=== PATIENT | female | born 1990 | race Caucasian/White ===

== ENCOUNTER → 2021-08-14 00:14 | Outpatient (CLI) | payer BC, MEDICAID, SELFPAY ==
[2021-08-14 12:32] LABS: SARS-CoV-2 RNA PCR Negative
== END ==
PROVIDERS: Visit Provider Obstetrics & Gynecology
DX: Z20.822 Contact with and (suspected) exposure to COVID-19 (principal)
CPT/HCPCS: C9803; U0003; U0005

== ENCOUNTER 2021-08-21 08:59 | Outpatient (RCR) | payer BC, MEDICAID, SELFPAY ==
[2021-08-21] MEDS: RHO(D) IMMUNE GLOBULIN 300 MCG/2 ML SYRINGE IM (09:21)
== END 2021-11-18 23:59 | disposition home or self-care (01) ==
LOC: ANHLAB 08:59
PROVIDERS: PCP Nurse Practitioner Family; Visit Provider Obstetrics & Gynecology
DX: Z29.13 Encounter for prophylactic Rho(D) immune globulin (principal); O26.859 Spotting complicating pregnancy, unspecified trimester; Z3A.00 Weeks of gestation of pregnancy not specified
CPT/HCPCS: 36415; 85461; 90384; 96372; J2790

== ENCOUNTER 2021-08-21 10:05 | Emergency (ER) | payer BC, MEDICAID, SELFPAY ==
[2021-08-21 10:16] VITALS: BP 120/80; PULSE 82; RESP 18; TEMP 36.7; O2SAT 100
--- NOTE | 2021-08-21 10:25 | ED.EAR ---
HPI - Ear Problem General Chief complaint: Ear Stated complaint: Sinus, Lt Ear Irritation Time Seen by Provider: 08/21/21 10:20 Source: patient Mode of arrival: ambulatory Limitations: no limitations History of Present Illness HPI Narrative: Koki Mercedes is a 31 yo female with no PMH who comes to [facility] with complaints of sinus congestion that has been unresponsive to saline. She has had tubes inserted under ears last July and she thinks that the tube in the left ear is not draining. She is newly with her third and she was told not to take Flonase by her multimedia project manager she has appoint with her OB on we will revisit this use of drug in the meantime she is been using Benadryl sparingly and saline nasal spray which has not controlled her symptoms she currently has pressure in her left ear and it is quite red Related Data Home Medications Medication Instructions Recorded Confirmed cetirizine [Zyrtec] 10 mg PO DAILY 08/21/21 08/21/21 famotidine [Pepcid] 20 mg PO DAILY 08/21/21 08/21/21 metoclopramide HCl [Reglan] 10 mg PO Q6H PRN 08/21/21 08/21/21 vit no.[id number] 1 tablet PO DAILY 08/21/21 08/21/21 [Classic ] Allergies Allergy/AdvReac Type Severity Reaction Status Date / Time No Known Allergies Allergy Verified 08/21/21 10:09 Review of Systems Review of Systems: CONSTITUTIONAL: Denies fever, chills, sweats. EYES: Denies visual changes, redness, discharge. ENT: Denies rhinorrhea, has congestion, sore throat, left otalgia. CARDIOVASCULAR: Denies chest pain, palpitations, edema. RESPIRATORY: Denies dyspnea, wheezing, cough GASTROINTESTINAL: Denies abdominal pain, nausea, vomiting, diarrhea. GENITOURINARY: Denies dysuria, hematuria, abnormal discharge SKIN: Denies rash or itching. NEUROLOGIC: Denies numbness, or focal weakness. PSYCHIATRIC: Denies anxiety or depression. [facility] Past Medical History Medical History No acute medical problems Social History Social History (Updated 08/21/21 @ 10:27 by Susan Comer CNP) Smoking status: Never smoker Alcohol intake: never Comments At time of signature, I agree with nursing past medical, surgical, social and family history. There is no relevant family history pertinent to the presenting complaint. Exam Narrative: GENERAL: This is a well-nourished, well-developed patient, in mild distress. HEAD: normocephalic, atraumatic. EYES: Sclera clear/white. Vision is grossly intact. EARS: External ears normal, auditory canal on left is erythematous with erythema around tube and without drainage, TMs normal without perforation. Hearing grossly intact. NOSE: External nose normal without nasal discharge, nares without redness, no rhinorrhea. THROAT: Mucous membranes moist, NECK: Neck supple, non-tender CARDIOVASCULAR: Regular rate and rhythm without murmurs, gallops, or rubs. RESPIRATORY: Clear to auscultation. Breath sounds equal bilaterally. No wheezes, rales, or rhonchi. GASTROINTESTINAL: Abdomen soft, SKIN: warm, intact with no suspicious lesions or rash, good texture and turgor. NEURO: awake, alert, and oriented to person, place and time. There were no obvious focal neurologic abnormalities. Steady gait EXTREMITIES: Normal range of motion. BACK: Nontender without deformity Course Course Emergency Course: Left-sided ear pain due to sinus pressure and believe that her left ear tube is not draining Started on polymyxin eardrops discussed revisiting using Flonase with her STEM SIZER Level of Care: Express Care Visit Vital Signs Vital signs: Vital Signs Temperature 98.0 F 08/21/21 10:16 Pulse Rate 82 08/21/21 10:16 Respiratory Rate 18 08/21/21 10:16 Blood Pressure 120/80 08/21/21 10:16 Pulse Oximetry 100 08/21/21 10:16 Temperature 98.0 F 08/21/21 10:16 Pulse Rate 82 08/21/21 10:16 Respiratory Rate 18 08/21/21 10:16 Blood Pressure
== END 2021-08-21 10:33 | disposition home or self-care (01) ==
PROVIDERS: Emergency Provider Nurse Practitioner; PCP Nurse Practitioner Family
DX: O90.89 Other complications of the puerperium, not elsewhere classified (principal); H66.002 Acute suppurative otitis media without spontaneous rupture of ear drum, left ear
CPT/HCPCS: 99213; G0463

== ENCOUNTER 2021-12-25 08:00 | Outpatient (RCR) | payer OTHER, MEDICAID, SELFPAY ==
[2021-12-24 13:37] LABS: Hematocrit 32.1 % (37.0-47.0); Hemoglobin 10.3 g/dL (12.0-15.0); Mean Platelet Volume 11.3 fl (7.4-10.4); Platelet Count Result 172 k/mm3 (150-375)
[2021-12-24 13:48] LABS: Glucose 1 Hour PP 50gm Dose 171 mg/dL
[2021-12-24 14:30] LABS: HIV 1/2 Ab P24 Ag Result Negative (Negative)
[2021-12-25] MEDS: RHO(D) IMMUNE GLOBULIN 300 MCG/2 ML SYRINGE IM (09:42)
== END 2022-03-24 23:59 | disposition home or self-care (01) ==
LOC: ANHLAB 08:00
PROVIDERS: PCP Nurse Practitioner Family; Visit Provider Obstetrics & Gynecology
DX: Z11.4 Encounter for screening for human immunodeficiency virus [HIV] (principal); Z29.13 Encounter for prophylactic Rho(D) immune globulin; O36.0130 Maternal care for anti-D [Rh] antibodies, third trimester, not applicable or unspecified; Z3A.00 Weeks of gestation of pregnancy not specified
CPT/HCPCS: 36415; 82947; 85014; 85018; 85049; 85461; 86703; 90384; 96372; G0432; J2790

== ENCOUNTER 2022-03-09 04:55 | Inpatient (IN) | payer OTHER, BC, MEDICAID, SELFPAY ==
[2022-03-09] VITALS (135 sets, daily range): BP systolic 90–121; BP diastolic 41–92; PULSE 59–110; RESP 15–17; TEMP 36.2–38.1; O2SAT 95–100; BMI 34.8
--- OUTSIDE RECORDS SUMMARY | 2022-03-09 04:59 | XMS_ITS | Encounter Summary ---
:1990 Author Care Team Providers Name Role Phone Thu Lee SQL DATA ANALYST Primary Care Provider [phone] Reason for Visit OB visit OB [id number] EDC 03/16/2022 LMP 06/03/2021 Assessment and Plan Assessment Note Patient is _38__weeks . Discuss ed plan. 1. Routine care Discussion Note: None recorded.Patient educational handouts: No information available. Plan of Care Reminders Provider Appointments None recorded. ? ? Lab None recorded. ? ? Referral None recorded. ? ? Procedures None recorded. ? ? Surgeries None recorded. ? ? Imaging None recorded. ? ? Medications Name Start Date ? ? Adult Aspirin 81 mg tablet ? Claritin 10 mg tablet ? Colace ? Daily ? insulin syringe U-100 with needle 0.3 mL 31 gauge x 15 /64 ? USE AT BEDTIME WITH INSULIN metoclopramide 10 mg tablet ? Novolin N NPH U-100 Insulin isophane 100 unit/mL subcu taneous susp ? INJECT 5 UNITS SUBCUTANEOUSLY AT BEDTIME ondansetron 8 mg disintegrating tablet ? DISSOLVE 1 TABLET IN MOUTH TWICE DAILY OneTouch Delica Plus Lancet 33 gauge ? OneTouch Verio Reflect Meter ? OneTouch Verio test strips ? Pepcid 40 mg tablet ? Medications Administered None recorded. Vitals Height Weight BMI Blood Pressure 5 ft 2.5 in 190 lbs 34.2 kg/m2 117/76 mm[Hg] Results Lab Results None recorded. Allergies Code Code System Name Reaction Severity Onset NKDA ? ? ?
--- OUTSIDE RECORDS SUMMARY | 2022-03-09 04:59 | XMS_ITS | Encounter Summary ---
:1990 Author Care Team Providers Name Role Phone Thu Vancekayode LEON Primary Care Provider [phone] Reason for Visit None recorded. Assessment and Plan 1. Gestational diabetes mellitus, class A>1< ? non-stress test Discussion Note: None recorded.Patient educational handouts: No information available. Plan of Care Reminders Provider Appointments None recorded. ? ? Lab None recorded. ? ? Referral None recorded. ? ? Procedures None recorded. ? ? Surgeries None recorded. ? ? Imaging Non-stress Test 03/04/2022 [place] Medications Name Start Date ? ? Adult [...] tablet ? Medications Administered None recorded. Vitals None recorded. Results Lab Results None recorded. Allergies Code Code System Name Reaction Severity Onset NKDA ? ? ? Problems Name Status Onset Date Source ? Active 08/26/2021 ? Procedures Date Name Performed by ? 07/10/2021
--- OUTSIDE RECORDS SUMMARY | 2022-03-09 04:59 | XMS_ITS ---
:1990 Author Care Team Providers Name Role Phone ANDREW MANSFIELD CAROLYN Primary Care Provider [phone] Allergies Code Code System Name Reaction Severity Status Onset NKDA ? Medications Name Status Start Date Stop Date ? ? Adult Aspirin 81 mg tablet Active ? Not a vailable amoxicillin 500 mg capsule Completed ? 02/02 amoxicillin 875 mg tablet Completed ? 2021 TAKE 1 TABLET BY MOUTH TWICE DAILY FOR 7 DAYS amoxicillin 875 mg-potassium clavulanate 125 mg tablet Completed ? 09/24/2021 TAKE 1 TABLET BY MOUTH TWICE DAILY FOR 10 DAYS Ceftin 500 mg tablet Completed 10/15/2013 11/08/2013 take 1 tablet (500MG) by oral route every 12 hours cephalexin 500 mg capsule Completed ? 2021 TAKE 1 CAPSULE BY MOUTH TWICE DAILY FOR 10 DAYS Cipro 500 mg tablet Completed 05/27/2015 07/29/2016 take 1 tablet by oral route every 12 hours ciprofloxacin 0.3 %-dexamethasone 0.1 % ear Completed ? 03/04/2021 drops,suspension Claritin 10 mg tablet Active ? Not availa ble Colace Active ? Not available cyclobenzaprine 10 mg tablet Completed 03/08/2017 take 1 tablet by oral route 2 times every day Daily Active ? Not available diazepam 5 mg tablet Completed ? 03/08/2021 dicloxacillin 500 mg capsule Completed 06/21/2017 take 1 capsule by oral route every 6 ho urs 1 hour before a meal or 2 hours after a meal Fioricet 50 mg-325 mg-40 mg tablet Completed 10/03/2013 10/15/2013 take 1 - 2 tablet by oral route every 4 hours as needed not to exceed 6 tablets per 24hrs Flagyl 500 mg ta
--- OUTSIDE RECORDS SUMMARY | 2022-03-09 04:59 | XMS_ITS | Encounter Summary ---
:1990 Author Care Team Providers Name Role Phone Thu Vancekayode LEON Primary Care Provider [phone] Reason for Visit None recorded. Assessment and Plan 1. Gestational diabetes mellitus, class A>2< ? non-stress test Discussion Note: None recorded.Patient educational handouts: No information available. Plan of Care Reminders Provider Appointments None recorded. ? ? Lab None recorded. ? ? Referral None recorded. ? ? Procedures None recorded. ? ? Surgeries None recorded. ? ? Imaging Non-stress Test 03/08/2022 [place] Medications Name Start Date ? ? Adult [...]
--- OUTSIDE RECORDS SUMMARY | 2022-03-09 05:00 | XMS_ITS | Encounter Summary ---
:1990 Author Care Team Providers Name Role Phone Thu Vancekayode LEON Primary Care Provider [phone] Reason for Visit None recorded. Assessment and Plan 1. Gestational diabetes mellitus, class A>1< ? non-stress test Discussion Note: None recorded.Patient educational handouts: No information available. Plan of Care Reminders Provider Appointments None recorded. ? ? Lab None recorded. ? ? Referral None recorded. ? ? Procedures None recorded. ? ? Surgeries None recorded. ? ? Imaging Non-stress Test 03/01/2022 [place] Medications Name Start Date ? ? Adult [...]
--- OUTSIDE RECORDS SUMMARY | 2022-03-09 05:00 | XMS_ITS | Encounter Summary ---
:1990 Author Care Team Providers Name Role Phone Thu Lee CAROLYN Primary Care Provider [phone] Reason for Visit None recorded. Assessment and Plan 1. Gestational diabetes mellitus, class A>1< ? US, obstetric, follow-up Discussion Note: None recorded.Patient educational handouts: No information available. Plan of Care Reminders Provider Appointments None recorded. ? ? Lab None recorded. ? ? Referral None recorded. ? ? Procedures None recorded. ? ? Surgeries None recorded. ? ? Imaging US, Obstetric, Follow-up 02/18/2022 [facility] Medications Name Start Date ? ? Adult Aspirin 81 mg tablet ? Claritin 10 mg tablet ? Colace ? Daily ? insulin syringe U-100 with needle 0.3 mL 31 gauge x 15 ? USE AT BEDTIME WITH INSULIN metoclopramide [...]
--- OUTSIDE RECORDS SUMMARY | 2022-03-09 05:00 | XMS_ITS | Encounter Summary ---
:1990 Author Care Team Providers Name Role Phone Thu Vancekayode LEON Primary Care Provider [phone] Reason for Visit None recorded. Assessment and Plan 1. Gestational diabetes mellitus, class A>1< ? non-stress test Discussion Note: None recorded.Patient educational handouts: No information available. Plan of Care Reminders Provider Appointments None recorded. ? ? Lab None recorded. ? ? Referral None recorded. ? ? Procedures None recorded. ? ? Surgeries None recorded. ? ? Imaging Non-stress Test 02/15/2022 [place] Medications Name Start Date ? ? Adult [...]
--- OUTSIDE RECORDS SUMMARY | 2022-03-09 05:00 | XMS_ITS | Encounter Summary ---
:1990 Author Care Team Providers Name Role Phone Thu Lee MORTGAGE FUNDER Primary Care Provider [phone] Reason for Visit OB visit OB [id number] EDC 03/16/2022 LMP 06/03/2021 Assessment and Plan Assessment Note Patient is _35__weeks . Discuss ed plan. 1. Routine care [...] BMI Blood Pressure 5 ft 2.5 in 191 lbs 34.4 kg/m2 111/71 mm[Hg] Results Lab Results None recorded. Allergies Code Code System Name Reaction Severity Onset NKDA ? ? ?
--- OUTSIDE RECORDS SUMMARY | 2022-03-09 05:00 | XMS_ITS | Encounter Summary ---
:1990 Author Care Team Providers Name Role Phone Thu Lee SLATE SPLITTING SUPERVISOR Primary Care Provider [phone] Reason for Visit OB visit OB [id number] EDC 03/16/2022 LMP Assessment and Plan Assessment Note Patient is __36_weeks . Discuss ed plan. 1. Routine care [...] ft 2.5 in 190 lbs 34.2 kg/m2 109/74 mm[Hg] Results Lab Results None recorded. Allergies Code Code System Name Reaction Severity Onset NKDA ? ? ? Problems
--- OUTSIDE RECORDS SUMMARY | 2022-03-09 05:00 | XMS_ITS | Encounter Summary ---
:1990 Author Care Team Providers Name Role Phone Thu Vancekayode LEON Primary Care Provider [phone] Reason for Visit None recorded. Assessment and Plan 1. heart deceleration ? US, obstetric, biophysical profile Discussion Note: None recorded.Patient educational handouts: No information available. Plan of Care Reminders Provider Appointments None recorded. ? ? Lab None recorded. ? ? Referral None recorded. ? ? Procedures None recorded. ? ? Surgeries None recorded. ? ? Imaging US, Obstetric, Biophysical Profile 02/08/2022 [place] Medications Name Start Date ? ? Adult [...]
--- OUTSIDE RECORDS SUMMARY | 2022-03-09 05:00 | XMS_ITS | Encounter Summary ---
:1990 Author Care Team Providers Name Role Phone Thu Lee PROCESSOR GRAIN Primary Care Provider [phone] Reason for Visit OB visit OB [id number] EDC 03/16/22 LMP 06/03/2021 Assessment and Plan Assessment Note Patient is _37__weeks . Discuss ed plan. 1. Routine care [...] BMI Blood Pressure 5 ft 2.5 in 192 lbs 34.6 kg/m2 116/77 mm[Hg] Results Lab Results None recorded. Allergies Code Code System Name Reaction Severity Onset NKDA ? ? ? Pr
--- OUTSIDE RECORDS SUMMARY | 2022-03-09 05:00 | XMS_ITS | Encounter Summary ---
:1990 Author Care Team Providers Name Role Phone Thu Vancekayode LEON Primary Care Provider [phone] Reason for Visit None recorded. Assessment and Plan 1. Reduced movement ? non-stress test Discussion Note: None recorded.Patient educational handouts: No information available. Plan of Care Reminders Provider Appointments None recorded. ? ? Lab None recorded. ? ? Referral None recorded. ? ? Procedures None recorded. ? ? Surgeries None recorded. ? ? Imaging Non-stress Test 02/09/2022 [place] Medications Name Start Date ? ? Adult [...] Procedures Date Name Performed by ? 07/10/2021 Perinasal Sinus
--- OUTSIDE RECORDS SUMMARY | 2022-03-09 05:00 | XMS_ITS | Encounter Summary ---
:1990 Author Care Team Providers Name Role Phone Thu Vancekayode LEON Primary Care Provider [phone] Reason for Visit None recorded. Assessment and Plan 1. Gestational diabetes mellitus, class A>1< ? non-stress test Discussion Note: None recorded.Patient educational handouts: No information available. Plan of Care Reminders Provider Appointments None recorded. ? ? Lab None recorded. ? ? Referral None recorded. ? ? Procedures None recorded. ? ? Surgeries None recorded. ? ? Imaging Non-stress Test 02/18/2022 [place] Medications Name Start Date ? ? Adult [...]
--- OUTSIDE RECORDS SUMMARY | 2022-03-09 05:00 | XMS_ITS | Encounter Summary ---
:1990 Author Care Team Providers Name Role Phone Thu Vancekayode LEON Primary Care Provider [phone] Reason for Visit None recorded. Assessment and Plan 1. Gestational diabetes mellitus, class A>1< ? non-stress test Discussion Note: None recorded.Patient educational handouts: No information available. Plan of Care Reminders Provider Appointments None recorded. ? ? Lab None recorded. ? ? Referral None recorded. ? ? Procedures None recorded. ? ? Surgeries None recorded. ? ? Imaging Non-stress Test 02/11/2022 [place] Medications Name Start Date ? ? Adult [...]
--- OUTSIDE RECORDS SUMMARY | 2022-03-09 05:00 | XMS_ITS | Encounter Summary ---
:1990 Author Care Team Providers Name Role Phone Thu Vancekayode LEON Primary Care Provider [phone] Reason for Visit None recorded. Assessment and Plan 1. condition affecting obstetrica l care of mother ? US, obstetric, biophysical profile + non-stress test Discussion Note: None recorded.Patient educational handouts: No information available. Plan of Care Reminders Provider Appointments None recorded. ? ? Lab None recorded. ? ? Referral None recorded. ? ? Procedures None recorded. ? ? Surgeries None recorded. ? ? Imaging US, Obstetric, Biophysical Profile + 2 [place] Non-stress Test Medications Name Start Date ? ? Adult [...]
--- OUTSIDE RECORDS SUMMARY | 2022-03-09 05:00 | XMS_ITS | Encounter Summary ---
:1990 Author Care Team Providers Name Role Phone Thu Vancekayode LEON Primary Care Provider [phone] Reason for Visit None recorded. Assessment and Plan 1. Gestational diabetes mellitus, class A>1< ? non-stress test Discussion Note: None recorded.Patient educational handouts: No information available. Plan of Care Reminders Provider Appointments None recorded. ? ? Lab None recorded. ? ? Referral None recorded. ? ? Procedures None recorded. ? ? Surgeries None recorded. ? ? Imaging Non-stress Test 02/22/2022 [place] Medications Name Start Date ? ? Adult [...]
--- OUTSIDE RECORDS SUMMARY | 2022-03-09 05:00 | XMS_ITS | Encounter Summary ---
:1990 Author Care Team Providers Name Role Phone Thu Vancekayode LEON Primary Care Provider [phone] Reason for Visit None recorded. Assessment and Plan 1. Gestational diabetes mellitus, class A>1< ? non-stress test Discussion Note: None recorded.Patient educational handouts: No information available. Plan of Care Reminders Provider Appointments None recorded. ? ? Lab None recorded. ? ? Referral None recorded. ? ? Procedures None recorded. ? ? Surgeries None recorded. ? ? Imaging Non-stress Test 02/25/2022 [place] Medications Name Start Date ? ? Adult [...]
--- OUTSIDE RECORDS SUMMARY | 2022-03-09 05:01 | XMS_ITS | Encounter Summary ---
:1990 Author Care Team Providers Name Role Phone Thu Lee CAROLYN Primary Care Provider [phone] Reason for Visit OB visit Assessment and Plan 1. Routine care Discussion Note: None recorded.Patient [...] BMI Blood Pressure 5 ft 2.5 in 189 lbs 34 kg/m2 125/76 mm[Hg] Results Lab Results None recorded. Allergies Code Code System Name Reaction Severity Onset NKDA ? ? ? Problems Name Status Onset Date Source ? Active 08/26/2021 ? Procedures Date Name Perf
--- OUTSIDE RECORDS SUMMARY | 2022-03-09 05:01 | XMS_ITS | Encounter Summary ---
:1990 Author Care Team Providers Name Role Phone Thu Vancekayode LEON Primary Care Provider [phone] Reason for Visit None recorded. Assessment and Plan 1. Gestational diabetes mellitus, class A>2< ? non-stress test Discussion Note: None recorded.Patient educational handouts: No information available. Plan of Care Reminders Provider Appointments None recorded. ? ? Lab None recorded. ? ? Referral None recorded. ? ? Procedures None recorded. ? ? Surgeries None recorded. ? ? Imaging Non-stress Test 01/28/2022 [place] Medications Name Start Date ? ? Adult [...]
--- OUTSIDE RECORDS SUMMARY | 2022-03-09 05:01 | XMS_ITS | Encounter Summary ---
:1990 Author Care Team Providers Name Role Phone Thu Lee SHALE PLANER OPERATOR Primary Care Provider [phone] Reason for Visit OB visit OB [id number] EDC 03/16/2022 LMP 06/03/2021 Assessment and Plan Assessment Note Patient is __34_weeks . Discuss ed plan. 1. Routine care [...] ft 2.5 in 191 lbs 34.4 kg/m2 110/72 mm[Hg] Results Lab Results None recorded. Allergies Code Code System Name Reaction Severity Onset NKDA ? ? ? P
--- OUTSIDE RECORDS SUMMARY | 2022-03-09 05:01 | XMS_ITS | Encounter Summary ---
:1990 Author Care Team Providers Name Role Phone Thu Lee CAROLYN Primary Care Provider [phone] Reason for Visit None recorded. Assessment and Plan 1. Gestational diabetes mellitus, class A>1< ? US, obstetric, follow-up Discussion Note: None recorded.Patient educational handouts: No information available. Plan of Care Reminders Provider Appointments None recorded. ? ? Lab None recorded. ? ? Referral None recorded. ? ? Procedures None recorded. ? ? Surgeries None recorded. ? ? Imaging US, Obstetric, Follow-up 01/28/2022 [facility] Medications Name Start Date ? [...]
--- OUTSIDE RECORDS SUMMARY | 2022-03-09 05:01 | XMS_ITS | Encounter Summary ---
:1990 Author Care Team Providers Name Role Phone Thu Lee CAROLYN Primary Care Provider [phone] Reason for Visit OB visit Assessment and Plan Assessment Note Patient is ___weeks . Discussed plan. 1. Routine care Discussion Note: None [...] ft 2.5 in 191 lbs 34.4 kg/m2 111/75 mm[Hg] Results Lab Results None recorded. Allergies Code Code System Name Reaction Severity Onset NKDA ? ? ? Problems Name Status Onset Date Source
--- OUTSIDE RECORDS SUMMARY | 2022-03-09 05:01 | XMS_ITS | Encounter Summary ---
:1990 Author Care Team Providers Name Role Phone Thu Smallsgwen LEON Primary Care Provider [phone] Reason for Visit None recorded. Assessment and Plan 1. screening ? US, obstetric, follow-up Discussion Note: None recorded.Patient educational handouts: No information available. Plan of Care Reminders Provider Appointments None recorded. ? ? Lab None recorded. ? ? Referral None recorded. ? ? Procedures None recorded. ? ? Surgeries None recorded. ? ? Imaging US, Obstetric, Follow-up 12/08/2021 [facility] Medications Name Start Date ? [...]
--- OUTSIDE RECORDS SUMMARY | 2022-03-09 05:01 | XMS_ITS | Encounter Summary ---
:1990 Author Care Team Providers Name Role Phone Thu Vancekayode LEON Primary Care Provider [phone] Reason for Visit None recorded. Assessment and Plan 1. Gestational diabetes mellitus, class A>2< ? non-stress test Discussion Note: None recorded.Patient educational handouts: No information available. Plan of Care Reminders Provider Appointments None recorded. ? ? Lab None recorded. ? ? Referral None recorded. ? ? Procedures None recorded. ? ? Surgeries None recorded. ? ? Imaging Non-stress Test 02/04/2022 [place] Medications Name Start Date ? ? Adult [...]
--- OUTSIDE RECORDS SUMMARY | 2022-03-09 05:01 | XMS_ITS | Encounter Summary ---
:1990 Author Care Team Providers Name Role Phone Thu Lee CAROLYN Primary Care Provider [phone] Reason for Visit OB visit Assessment and [...] ft 2.5 in 189 lbs 34 kg/m2 113/75 mm[Hg] Results Lab Results None recorded. Allergies Code Code System Name Reaction Severity Onset NKDA ? ? ? Problems Name Status Onset Date Source
--- OUTSIDE RECORDS SUMMARY | 2022-03-09 05:01 | XMS_ITS | Encounter Summary ---
:1990 Author Care Team Providers Name Role Phone Thu Smallsgwen LEON Primary Care Provider [phone] Reason for Visit OB visit Assessment and [...] ft 2.5 in 189 lbs 34 kg/m2 112/75 mm[Hg] Results Lab Results None recorded. Allergies Code Code System Name Reaction Severity Onset NKDA ? ? ? Problems Name Status Onset Date Source
--- OUTSIDE RECORDS SUMMARY | 2022-03-09 05:01 | XMS_ITS | Encounter Summary ---
:1990 Author Care Team Providers Name Role Phone Thu Lee CAROLYN Primary Care Provider [phone] Reason for Visit NST [id number] EDC 03/16/2022 LMP 06/03/2021 Assessment and Plan 1. Gestational diabetes mellitus, class A>1< ? non-stress test Discussion Note: None recorded.Patient educational handouts: No information available. Plan of Care Reminders Provider Appointments None recorded. ? ? Lab None recorded. ? ? Referral None recorded. ? ? Procedures None recorded. ? ? Surgeries None recorded. ? ? Imaging Non-stress Test 01/25/2022 [place] Medications Name Start Date ? ? Adult [...]
--- OUTSIDE RECORDS SUMMARY | 2022-03-09 05:01 | XMS_ITS | Encounter Summary ---
:1990 Author Care Team Providers Name Role Phone Thu Vancekayode LEON Primary Care Provider [phone] Reason for Visit None recorded. Assessment and Plan 1. Gestational diabetes mellitus, class A>2< ? non-stress test Discussion Note: None recorded.Patient educational handouts: No information available. Plan of Care Reminders Provider Appointments None recorded. ? ? Lab None recorded. ? ? Referral None recorded. ? ? Procedures None recorded. ? ? Surgeries None recorded. ? ? Imaging Non-stress Test 02/08/2022 [place] Medications Name Start Date ? ? Adult [...]
--- OUTSIDE RECORDS SUMMARY | 2022-03-09 05:01 | XMS_ITS | Encounter Summary ---
:1990 Author Care Team Providers Name Role Phone Tuh Lee APPAREL MANUFACTURE INSTRUCTOR Primary Care Provider [phone] Reason for Visit OB visit OB [id number] EDC 03/16/2022 LMP 06/03/2021 Assessment and Plan Assessment Note Patient is _33__weeks . Discuss ed plan. 1. Routine care [...] ft 2.5 in 190 lbs 34.2 kg/m2 114/75 mm[Hg] Results Lab Results None recorded. Allergies Code Code System Name Reaction Severity Onset NKDA ? ? ? P
--- OUTSIDE RECORDS SUMMARY | 2022-03-09 05:01 | XMS_ITS | Encounter Summary ---
:1990 Author Care Team Providers Name Role Phone Thu Vancekayode LEON Primary Care Provider [phone] Reason for Visit None recorded. Assessment and Plan 1. Gestational diabetes mellitus, class A>1< ? non-stress test Discussion Note: None recorded.Patient educational handouts: No information available. Plan of Care Reminders Provider Appointments None recorded. ? ? Lab None recorded. ? ? Referral None recorded. ? ? Procedures None recorded. ? ? Surgeries None recorded. ? ? Imaging Non-stress Test 01/20/2022 [place] Medications Name Start Date ? ? [...]
--- OUTSIDE RECORDS SUMMARY | 2022-03-09 05:01 | XMS_ITS | Encounter Summary ---
:1990 Author Care Team Providers Name Role Phone Thu Lee CAROLYN Primary Care Provider [phone] Reason for Visit nst [id number] EDC 03/16/2022 Assessment and Plan 1. Gestational diabetes mellitus ? non-stress test Discussion Note: None recorded.Patient educational handouts: No information available. Plan of Care Reminders Provider Appointments None recorded. ? ? Lab None recorded. ? ? Referral None recorded. ? ? Procedures None recorded. ? ? Surgeries None recorded. ? ? Imaging Non-stress Test 02/01/2022 [place] Medications Name Start Date ? ? Adult [...] ft 2.5 in 190 lbs 34.2 kg/m2 107/73 mm[Hg] Results Lab Results None recorded. Allergies Code Code System Name Reaction Severity Onset NKDA ? ? ? Problems Name Status Onset Date Source ? Active 08/26/2021
--- NOTE | 2022-03-09 05:52 | LDADM ---
This patient, Prerna Mercedes, was admitted to Labor/Delivery/Recovery 102 on 03/09/22 at 04:55. Plans for labor, pain management and were discussed with patient. Patient/family oriented to hospital policies and general routines including ID bracelet, bed and alarms, visiting hours, pain management, procedures, bathroom and other care routines, personal items, smoking policy, room service/diet and guest tray routines, security routines, and visiting hours. Patient/Family are encouraged to report perceived risks to care and to ask questions if they do not understand what they are told or what they should do. See OBIX for further documentation.
[2022-03-09 06:33] LABS: Glucose Point of Care 112 mg/dl (65-105)
[2022-03-09 06:40] LABS: Basophils Percent Auto 0.5 % (0.2-1.2); Eosinophils Absolute Auto 0.1 K/mm3 (0-0.3); Eosinophils Percent Auto 0.6 % (0-4.4); Hematocrit 38.2 % (37.0-47.0); Hemoglobin 12.2 g/dL (12.0-15.0); Immature Granulocyte Absolute 0.21 K/mm3 (0.00-0.031); Immature Granulocyte Percent A 2.6 % (0-0.5); Lymphocytes Absolute Auto 1.71 K/mm3 (0.9-3.2); Lymphocytes Percent Auto 21.1 % (18.3-44.2); Mean Corpuscular HGB Conc 31.9 g/dl (32-36); Mean Corpuscular Hemoglobin 28.2 pg (26-34); Mean Corpuscular Volume 88.4 fl (80-100); Mean Platelet Volume 12.6 fl (7.4-10.4); Monocytes Absolute Auto 0.5 K/mm3 (0.1-0.6); Monocytes Percent Auto 6.7 % (2.6-8.5); Neutrophils Absolute Auto 5.5 K/mm3 (1.3-6.7); Neutrophils Percent Auto 68.5 % (45.5-73.1); Nucleated Red Blood Cells Perc 0.2 % (0.0-0.2); Platelet Count Result 132 k/mm3 (150-375); Red Blood Count 4.32 M/mm3 (4.2-5.4); Red Cell Distribution Width 18.5 % (11.5-14.5); White Blood Count 8.1 K/mm3 (4.5-10.0)
[2022-03-09] MEDS: LACTATED RINGERS 1,000 ML 125 ML IV CONT ×4 (06:40→18:17)
[2022-03-09] MEDS: AMPICILLIN 2 GM/NS 100 ML 2 GM/100 ML BAG IVPB (06:41)
[2022-03-09] MEDS: OXYTOCIN 30 UNITS/NS 500 ML 30 UNITS/500 ML BAG IV CONT (06:42)
--- NOTE | 2022-03-09 07:41 | WPDOBADMIT ---
Obstetrics - Admit Note Admission Note: record reviewed. No pertinent additions to the history and/or any subsequent changes in the physical findings that are not consistent with the expected course of the were found. IOL, GDMA2. TOLAC, SVE 260/-2, AROM small amount of clear odorless fluid, IUPC placed and consent signed by Dr. Berg and pt, anticipate vaginal delivery Additions to the history and/or subsequent changes in the physical findings follow. None.
[2022-03-09 07:56] LABS: Rapid Plasma Reagin Non-Reactive (NonReactive)
[2022-03-09] MEDS: AMPICILLIN 1 GM/NS 50 ML 1 GM/50 ML BAG IVPB ×3 (10:40→18:16)
[2022-03-09 11:39] LABS: Glucose Point of Care 99 mg/dl (65-105)
--- NOTE | 2022-03-09 12:13 | WPDANESEPP ---
Anes - Eval Pre Procedure Procedure: labor pain management Date/Time: 03/09/22 12:13 Surgeon: Otis Preop Diagnosis: pain during labor Pre Op Diagnosis: Pain during labor Patient Data Age: 31 Gender: F Height: 1.57 m Weight: 86.4 kg Last Vital Signs Temp 97.8 F 03/09/22 11:00 Pulse 86 03/09/22 11:31 BP 98/85 L 03/09/22 11:31 O2 Del Method Room Air 03/09/22 05:49 Allergies Allergy/AdvReac Type Severity Reaction Status Date / Time No Known Allergies Allergy Verified 03/09/22 06:37 Home Medications Medication Instructions Recorded Confirmed Type cetirizine 10 mg capsule (Zyrtec) 10 mg PO DAILY 08/21/21 03/09/22 History famotidine 20 mg tablet (Pepcid) 20 mg PO DAILY 08/21/21 03/09/22 History vits no.126-ferrous fum 1 tablet PO DAILY 08/21/21 03/09/22 History 28 mg iron-folic acid 800 mcg tablet (Classic ) insulin zinc human recomb 100 10 unit subcut 02/26/22 History unit/mL subcutaneous suspension Laboratory Tests 03/09/22 03/09/22 03/09/22 05:22 05:22 05:22 WBC 8.1 K/mm3 K/mm3 (4.5-10.0) RBC 4.32 M/mm3 M/mm3 (4.2-5.4) Hgb 12.2 g/dL g/dL (12.0-15.0) Hct 38.2 % % (37.0-47.0) MCV 88.4 fl fl (80-100) MCH 28.2 pg pg (26-34) MCHC 31.9 g/dl L g/dl (32-36) RDW 18.5 % H % (11.5-14.5) Plt Count 132 k/mm3 L k/mm3 (150-375) MPV 12.6 fl H fl (7.4-10.4) Immature Gran % (Auto) 2.6 % H % (0-0.5) Neut % (Auto) 68.5 % % (45.5-73.1) Lymph % (Auto) 21.1 % % (18.3-44.2) Robertson % (Auto) 6.7 % % (2.6-8.5) Eos % (Auto) 0.6 % % (0-4.4) Baso % (Auto) 0.5 % % (0.2-1.2) Lymph # (Auto) 1.71 K/mm3 K/mm3 (0.9-3.2) Robertson # (Auto) 0.5 K/mm3 K/mm3 (0.1-0.6) Eos # (Auto) 0.1 K/mm3 K/mm3 (0-0.3) Baso # (Auto) 0.0 K/mm3 K/mm3 (0.0-0.1) Abs Immat Gran (auto) 0.21 K/mm3 H K/mm3 (0.00-0.031) Absolute Neuts (auto) 5.5 K/mm3 K/mm3 (1.3-6.7) Absolute Nucleated RBC 0.0 K/mm3 K/mm3 (0.0-0.012) Nucleated RBC % 0.2 % % (0.0-0.2) % Immature Plt Fraction 15.0 % H % (0.9-11.2) POC Capillary Glucose RPR Non-reactive (NonReactive) Blood Type O Negative Antibody Screen Negative 03/09/22 03/09/22 06:27 11:37 WBC RBC Hgb Hct MCV MCH MCHC RDW Plt Count MPV Immature Gran % (Auto) Neut % (Auto) Lymph % (Auto) Robertson % (Auto) Eos % (Auto) Baso % (Auto) Lymph # (Auto) Robertson # (Auto) Eos # (Auto) Baso # (Auto) Abs Immat Gran (auto) Absolute Neuts (auto) Absolute Nucleated RBC Nucleated RBC % % Immature Plt Fraction POC Capillary Glucose 112 mg/dl H mg/dl 99 mg/dl mg/dl (65-105) (65-105) RPR Blood Type Antibody Screen Patient hx anesthesia problems: none Family hx anesthesia problems: none Results Review: All pre-operative results and documents have been reviewed as part of the pre-operative evaluation. [facility] Past Medical History Medical History No acute medical problems Family History Family History Grandparent Asthma Sibling Asthma Social History Social History Smoking status: Never smoker Alcohol intake: never Substance use: never Spiritual care concerns: No Exam Day of Procedure 03/09/22 12:13 Patient weight: obese Neurological: alert and oriented
[2022-03-09 14:41] LABS: Glucose Point of Care 82 mg/dl (65-105)
[2022-03-09] MEDS: ONDANSETRON INJ 4 MG/2 ML VIAL IV PUSH ×2 (17:17→21:18)
[2022-03-09 21:37] LABS: Glucose Point of Care 80 mg/dl (65-105)
--- NOTE | 2022-03-09 22:03 | PM.IMHP ---
H&P: HPI History of Present Illness Date/Time: 03/09/22 22:03 Chief Complaint: Labor Narrative: This patient is a 31-year-old multiparous female term who was attempting a trial of labor after . She reached the 2nd stage and then there was failure to descent of the fetus in the 2nd stage. She denies any nausea, vomiting, fever, chills. She denies any chest pain or shortness of breath. There was no excessive vaginal bleeding. Review of Systems Review of Systems: All systems reviewed & are unremarkable except as noted in HPI and below Constitutional: Constitutional: Denies chills, Denies fatigue, Denies fever(s) and Denies weakness Eyes: Eyes: Denies blurry vision, Denies change in vision, Denies loss of peripheral vision, Denies loss of vision, Denies other visual disturbances and Denies eye pain ENT: Denies vertigo, Denies dizziness, Denies hearing loss, Denies mouth pain, Denies nasal obstruction, Denies neck mass and Denies neck pain Cardiovascular: Cardiovascular: Denies chest pain, Denies diaphoresis, Denies syncope, Denies leg edema and Denies dyspnea Respiratory: Respiratory: Denies chest congestion, Denies cough, Denies hemoptysis, Denies dyspnea and Denies wheezing Gastrointestinal: Gastrointestinal: Denies abdominal pain, Denies constipation, Denies diarrhea, Denies nausea and Denies vomiting Genitourinary: Genitourinary: Denies hematuria, Denies change in libido, Denies nocturia, Denies genital lesions, Denies flank pain and Denies urinary urgency Musculoskeletal: Musculoskeletal: Denies abnormal gait, Denies back pain, Denies myalgias, Denies arthralgias, Denies joint swelling, Denies muscle weakness and Denies neck pain Integumentary/Breasts: Skin/Breast: Denies swelling, Denies breast pain, Denies breast mass, Denies dry skin, Denies nipple discharge, Denies unusual bruising and Denies jaundice Neurologic: Denies Neuro-related abnormal movements, Denies Abnormal speech present, Denies abnormal gait, Denies behavioral changes, Denies confusion, Denies vertigo, Denies dizziness, Denies syncope, Denies loss of vision, Denies memory loss, Denies convulsions and Denies weakness Psychiatric: Psychiatric: Denies abnormal sleep pattern, Denies behavioral changes, Denies change in libido, Denies confusion, Denies depression, Denies anhedonia and Denies memory loss Endocrine: Endocrine: Reports no additional endocrine complaints, Denies change in libido and Denies fatigue Hematologic/Lymphatic: Hematologic/Lymphatic: Reports no additional hematologic/lymphatic complaints Allergic/Immunologic: Allergic/Immunologic: Reports no additional allergic/immunologic complaints and Denies wheezing PMFSH Past Medical History Medical History No acute medical problems Family History Family History Grandparent Asthma Sibling Asthma Social History Social History Smoking status: Never smoker Alcohol intake: never Substance use: never Spiritual care concerns: No Meds Home Medications and Allergies Home Medications Medication Instructions Recorded Confirmed Type cetirizine 10 mg capsule (Zyrtec) 10 mg PO DAILY 08/21/21 03/09/22 History famotidine 20 mg tablet (Pepcid) 20 mg PO DAILY 08/21/21 03/09/22 History vits no.126-ferrous fum 1 tablet PO DAILY 08/21/21 03/09/22 History 28 mg iron-folic acid 800 mcg tablet (Classic ) insulin zinc human recomb 100 10 unit subcut 02/26/22 History unit/mL subcutaneous suspension Allergies Allergy/AdvReac Type Severity Reaction Status Date / Time No Known Allergies Allergy Verified 03/09/22 06:37 Vital Signs Vital Signs - 24 hr 03/09/22 05:21 03/09/22 06:01 03/09/22 06:43 Temperature 97.2 F L Pulse Rate 89 88 Blood Pressure 108/68 111/69 Pulse Ox
--- NOTE | 2022-03-09 22:48 | W.PM.PROC2 ---
Procedure Note - Detailed Date of Procedure 03/09/22 Pre-op Diagnosis Term , malposition of the head, with previous delivery, failed TOLAC, failure to descend Post-op Diagnosis Same Procedure Performed Low-transverse section Surgeon Jose Berg MD Anesthesia Spinal Indications failure to descend, malposition of the head, previous Findings Normal gestational maternal anatomy, average size , normal Apgars. anterior placenta , densely scarred lower uterine segment. Description of Procedure The patient was taken the operating room. She was prepped and draped in dorsal supine position with a leftward tilt. This was done after spinal anesthetic was applied. A low-transverse skin incision was made and carried down till of the fascia with the knife. The fascial incision was made with the knife. The fascial incision was extended laterally with Rodriguez scissors. The fascia was tented upward superiorly and inferiorly the rectus muscles were dissected off bluntly. The rectus muscles were the midline. The preperitoneal fat and peritoneum were dissected open bluntly at the superior aspect of the rectus muscles. The peritoneal incision was extended superior and inferior with good position of bladder. The uterine incision was made with a scalpel down to the level of the amniotic cavity. The amniotic cavity was entered bluntly. The was delivered. The cord was clamped and cut and the was handed off to waiting pediatric staff. Cord bloods were obtained. The placenta was removed manually. The uterus was exteriorized. The uterus was cleared of all clots, debris and membranes. The uterus was closed in 0 Vicryl running lock fashion. An imbricating over a was placed along the incision line as well. The uterus was returned to the abdomen. The gutters were cleared of all clots and debris. The fascia was closed with 0 Vicryl running fashion. The subcutaneous tissue was irrigated pinpoint bleeders were cauterized. The skin was closed with subcuticular absorbable yoshi. The skin incision line was covered with glue. The patient tolerated the procedure well. She has taken recovery room in stable condition. Sponge lap and needle counts were correct x2. Estimated Blood Loss 400 Complications No immediate complications Condition Stable Disposition PACU
[2022-03-10] VITALS (23 sets, daily range): BP systolic 90–115; BP diastolic 52–69; PULSE 74–106; RESP 16–18; TEMP 36.4–36.9; O2SAT 95–99
[2022-03-10] MEDS: IBUPROFEN 600 MG TABLET PO ×3 (04:26→20:48)
[2022-03-10] MEDS: DEXTROSE 5%/0.45% SOD CHL 1,000 ML 125 ML IV CONT (04:27)
[2022-03-10 05:30] LABS: Basophils Absolute Auto 0.1 K/mm3 (0.0-0.1); Basophils Percent Auto 0.3 % (0.2-1.2); Eosinophils Absolute Auto 0.2 K/mm3 (0-0.3); Hemoglobin 10.3 g/dL (12.0-15.0); Immature Granulocyte Absolute 0.17 K/mm3 (0.00-0.031); Immature Granulocyte Percent A 0.9 % (0-0.5); Lymphocytes Absolute Auto 1.43 K/mm3 (0.9-3.2); Lymphocytes Percent Auto 7.7 % (18.3-44.2); Mean Corpuscular HGB Conc 32.2 g/dl (32-36); Mean Corpuscular Hemoglobin 28.9 pg (26-34); Mean Corpuscular Volume 89.6 fl (80-100); Monocytes Percent Auto 5.6 % (2.6-8.5); Neutrophils Absolute Auto 15.6 K/mm3 (1.3-6.7); Neutrophils Percent Auto 84.5 % (45.5-73.1); Platelet Count Result 130 k/mm3 (150-375); Red Blood Count 3.57 M/mm3 (4.2-5.4); Red Cell Distribution Width 18.4 % (11.5-14.5); White Blood Count 18.5 K/mm3 (4.5-10.0)
--- NOTE | 2022-03-10 07:35 | WPDANLDPN2 ---
Anes-Prog Note L&D Date/Time: 03/10/22 07:35 Comfortable throughout: section Neuraxial method: epidural Epidural/Spinal procedure site: clean & non-tender Neuro status: Neuro function grossly intact. Cardiovascular status: normal Respiratory status: normal Airway patency: baseline Mental status: baseline Post-Op hydration status: normal Vital Signs: Last Vital Signs Temp 36.9 C 03/10/22 05:00 Pulse 99 03/10/22 05:00 Resp 18 03/10/22 05:00 BP 115/68 03/10/22 05:00 Pulse Ox 98 03/10/22 05:00 O2 Del Method Room Air 03/10/22 05:00 Pain score (VAS): 1 I/O: Intake & Output 03/09/22 03/09/22 03/10/22 15:59 23:59 07:59 Intake Total 2100 1500 450 Output Total 825 Balance 2100 1500 -375 Post-procedural complaints: none Patient feedback: Patient satisfied with anesthetic care.
--- NOTE | 2022-03-10 07:37 | WPDANLDNPN2 ---
Anes-Prog Note L&D-Neuraxial Date/Time: 03/10/22 07:37 Neuraxial medications: epidural PF morphine Opiod-related complaints: none Patient feedback: Patient satisfied with post-operative pain management.
--- NOTE | 2022-03-10 08:04 | P.PNOB_ITS ---
OB - PN: Subj Subjective Date/time seen: 03/10/22 08:04 Patient comments: no complaints, pain well controlled, tolerating diet and flatus present OB - PN: Obj Data Labs CBC & Chem 7: 03/10/22 05:11 Labs: Laboratory Results - last 24 hr 03/09/22 03/09/22 03/09/22 11:37 14:36 18:20 WBC RBC Hgb Hct MCV MCH MCHC RDW Plt Count MPV Immature Gran % (Auto) Neut % (Auto) Lymph % (Auto) Frontier % (Auto) Eos % (Auto) Baso % (Auto) Lymph # (Auto) Frontier # (Auto) Eos # (Auto) Baso # (Auto) Abs Immat Gran (auto) Absolute Neuts (auto) Absolute Nucleated RBC Nucleated RBC % POC Capillary Glucose 99 82 80 03/10/22 05:11 WBC 18.5 H RBC 3.57 L Hgb 10.3 L Hct 32.0 L MCV 89.6 MCH 28.9 MCHC 32.2 RDW 18.4 H Plt Count 130 L MPV 13.0 H Immature Gran % (Auto) 0.9 H Neut % (Auto) 84.5 H Lymph % (Auto) 7.7 L Frontier % (Auto) 5.6 Eos % (Auto) 1.0 Baso % (Auto) 0.3 Lymph # (Auto) 1.43 Frontier # (Auto) 1.0 H Eos # (Auto) 0.2 Baso # (Auto) 0.1 Abs Immat Gran (auto) 0.17 H Absolute Neuts (auto) 15.6 H Absolute Nucleated RBC 0.0 Nucleated RBC % 0.0 POC Capillary Glucose OB - PN A/P Plan day: 1 Comments: Post Op LTCS - no problems, routine recovery Time Spent With Patient Time: Total time spent is greater than 50% in coordination of care (as documented) at patient's floor/unit and/or counseling patient: Exam Const: General: cooperative, healthy appearing, comfortable and no acute distress Resp: Auscultation: no crackles, no rales, no rhonchi and no wheezes Cardio: Rhythm: regular rhythm Heart sounds: no click and no murmurs GI: Inspection: non-distended Auscultation: normal bowel sounds Extrem: General: normal to inspection, no pedal edema and no calf tenderness
--- NOTE | 2022-03-10 08:43 | PC.NURSE ---
This morning introductions were made, then consulted with patient to assess needs related to . Mother led the conversation with her?plans to feed?her infant and the?experience so far. Resources provided for inpatient and outpatient services using a resource guide and mom/baby guide. Mother voiced understanding of information and mother requested assistance assessing latching on the left breast. RN tested 's blood sugar (49mg/dl) before mother initiates . Large meconium stool diaper changed. Mother works well with her infant. Encouraged understanding of the benefits of skin to skin (unwrapping infant and placing vertically on her chest), responsive feeding and how to watch for early feeding signs, frequency of feeding on demand about every 8-12 times in 24 hours (every 2-3 hours), milk production, duration of feeding, signs of adequate intake/output and how to record on the feeding sheet. Reviewed positioning and ear, shoulder, hip alignment, supporting the breast, asymmetrical latch (off-center), and leading with the chin with a big open side gape. latched optimally to the left breast in football position. Education given to mother of how to visualize suck/swallow ratios and drinking at the breast. Infant was able to maintain latch without discomfort to mother. Nipple care reviewed with optimal latch and good positioning. Resources used to facilitate learning were used with the mom and baby guide. Mother voiced understanding of responsive feedings, stimulating with skin to skin, hand expressed colostrum, massage touch, talking to infant to encourage if it has been 2 -3 hours since the start of the last , to call if infant does not latch or there is discomfort with . Reported to the primary RN.
[2022-03-10] MEDS: KETOROLAC 30 MG/ML VIAL (*BKC) IV PUSH (09:07)
[2022-03-10] MEDS: KCL 20 MEQ/D5/0.45% SOD CHL 1,000 ML 125 ML IV CONT (11:56)
[2022-03-10] MEDS: MULTIVIT/MIN/PREN/FOL AC/IRON TABLET 1 TAB PO (11:56)
[2022-03-10] MEDS: DEXTROSE 5%/0.45% SOD CHL 1,000 ML 500 ML IV CONT (13:30)
[2022-03-10] MEDS: DOCUSATE SODIUM 100 MG CAPSULE PO (14:23)
[2022-03-10] MEDS: HYDROcodone/acetaminophen (*CRX) 5-325 MG TABLET 1 TAB PO ×2 (16:18→20:48)
[2022-03-10] MEDS: SIMETHICONE 80 MG TAB.CHEW PO ×2 (16:20→20:49)
[2022-03-11] MEDS: HYDROcodone/acetaminophen (*CRX) 5-325 MG TABLET 1 TAB PO ×2 (06:11→10:26)
[2022-03-11] MEDS: IBUPROFEN 600 MG TABLET PO (06:12)
[2022-03-11] MEDS: SIMETHICONE 80 MG TAB.CHEW PO (06:12)
--- NOTE | 2022-03-11 07:29 | PM.OBPNVD ---
OB - PN: Subj Subjective Date/time seen: 03/11/22 07:29 OB - PN: Obj Data Labs CBC & Chem 7: 03/10/22 05:11 OB - PN A/P Plan day: 2 Plan: routine care and discharge home Time Spent With Patient Time: Total time spent is greater than 50% in coordination of care (as documented) at patient's floor/unit and/or counseling patient: Review of Systems Review of Systems: All systems reviewed & are unremarkable except as noted in HPI and below Exam Narrative: incision CDI Const: General: cooperative, healthy appearing and comfortable Resp: Effort & Inspection: normal respiratory effort and able to speak in complete sentences GI: Inspection: normal to inspection Skin: General skin exam: normal color Neuro: General: oriented to person and oriented to place
--- NOTE | 2022-03-11 07:33 | PM.OBDSVD ---
DS: Admitting Diagnosis Discharge Date 03/11/22 Admitting Diagnosis iol OB - DS: Summary OB Procedures : None OB Procedures Intrapartum: OB Procedures: : None Peripartum Data Procedures: Procedures Operation Date: 03/09/22 22:15 Actual Procedure Side Surgeon p Section Not Applicable Jose Berg MD Time Spent with Patient Time attestation: Total time spent providing and/or coordinating discharge services: Discharge Plan Discharge Attending physician on discharge: Jose Berg Discharging Clinician: Madai Oleary Patient Disposition: Home, Self-Care Activity: pelvic rest Diet: regular Patient Instructions: Antibiotic Form Stand Alone Forms: General Discharge Information Follow-up/Referrals: Jose Berg MD [Physician] - 1 Week Discharge Medications: New hydrocodone-acetaminophen 5-325 mg Tablet 1 tablet PO Q3H PRN (Reason: Moderate Pain (4-6)) Qty: 20 0RF ibuprofen 600 mg Tablet 600 mg PO Q6H PRN (Reason: Cramping) Qty: 30 0RF Continued Zyrtec 10 mg Capsule 10 mg PO DAILY famotidine [Pepcid] 20 mg Tablet 20 mg PO DAILY Classic 28 mg iron- 800 mcg Tablet 1 tablet PO DAILY Discontinued Novolin L 100 unit/mL Suspension 10 unit SUBCUT Rx Instructions: At Date of admission: 03/09/22 04:55 Primary Care Provider: Roas,Thu Maki Admitting Provider: Jose Berg Attending physician on admission: Jose Berg Condition: Stable
[2022-03-11 07:50] VITALS: BP 98/59; PULSE 93; RESP 16; TEMP 36.5; O2SAT 98
[2022-03-11] MEDS: MULTIVIT/MIN/PREN/FOL AC/IRON TABLET 1 TAB PO (08:25)
[2022-03-11] MEDS: DOCUSATE SODIUM 100 MG CAPSULE PO (08:25)
[2022-03-12 09:37] VITALS: BP 108/65; PULSE 92; RESP 20; TEMP 36.7; O2SAT 99
== END 2022-03-11 10:42 | disposition home or self-care (01) | DRG 788 ==
LOC: ANHLDR 12:15 → ANHOB2 03-10 01:18
PROVIDERS: Advanced Practice Midwife; Admitting Provider Obstetrics & Gynecology; PCP Nurse Practitioner Family; Visit Provider Obstetrics & Gynecology
PROC: 10D00Z1 Extraction of Products of Conception, Low, Open Approach (ICD-10-PCS; CPT 59514; principal; 2022-03-09 22:15)
DX: O34.219 Maternal care for unspecified type scar from previous cesarean delivery (principal); O62.2 Other uterine inertia; O32.9XX0 Maternal care for malpresentation of fetus, unspecified, not applicable or unspecified; O99.824 Streptococcus B carrier state complicating childbirth; O24.429 Gestational diabetes mellitus in childbirth, unspecified control; O76 Abnormality in fetal heart rate and rhythm complicating labor and delivery; Z3A.39 39 weeks gestation of pregnancy; Z37.0 Single live birth
CPT/HCPCS: 36415; 82948; 85025; 85055; 86592; 86850; 86900; 86901; A9270; J0131; J0290; J1885; J2274; J2405; J2590; J2795; J3480; J7120

== ENCOUNTER 2023-07-07 15:18 | Emergency (ER) | payer OTHER, MEDICAID, SELFPAY ==
[2023-07-07 15:34] VITALS: BP 128/72; PULSE 59; RESP 18; TEMP 36.3; O2SAT 100
--- NOTE | 2023-07-07 15:49 | ED.EAR ---
HPI - Ear Problem General Chief complaint: Ear Stated complaint: Ears Irritation Time Seen by Provider: 07/07/23 15:49 Source: patient Mode of arrival: ambulatory Limitations: no limitations History of Present Illness HPI Narrative: Koki is a 33-year-old female patient presenting to the clinic today with complaints of bilateral ear pain x1 week. She reports 3 weeks ago she had sinus drainage and pressure. States that that has all resolved however is having bilateral ear pain over the last week left greater than right. Related Data Home Medications Medication Instructions Recorded Confirmed cetirizine 10 mg capsule (Zyrtec) 10 mg PO DAILY 08/21/21 07/07/23 famotidine 20 mg tablet (Pepcid) 20 mg PO DAILY 08/21/21 07/07/23 Allergies Allergy/AdvReac Type Severity Reaction Status Date / Time No Known Allergies Allergy Verified 07/07/23 15:45 Review of Systems Review of Systems: Pertinent positives per HPI. Patient denies any fever, chills, rash, headache, visual changes, dizziness, cough, shortness of breath, chest pain, palpitations, nausea, vomiting, diarrhea, constipation, abdominal pain, or any urinary issues. [facility] Past Medical History Medical History No acute medical problems Family History Family History Grandparent Asthma Sibling Asthma Social History Social History Smoking status: Never smoker Alcohol intake: never Substance use: never Spiritual care concerns: No Comments At the time of my signature, I reviewed and agree with the nursing past medical, surgical, social, and family history. There is no relevant family history pertinent to the patient complaint. Exam Narrative: General: Well-developed, well nourished, in no apparent distress Head: Normocephalic, atraumatic Eyes: Pupils equally round and reactive to light bilaterally, EOM intact, sclera and conjunctive clear, no discharge, lids normal Ears: Right tMs intact and clear, left TM intact, mild bulging, fluid noted behind the TM. Ear canals clear, no drainage, grossly hearing normal. Nose: Nares patent, clear discharge, no inflammation, no sinus tenderness. Mouth: Oral pharynx without lesions or masses, good dentition, MMM. Neck: Supple, trachea midline, no enlargement of anterior or posterior cervical nodes, no thyroid masses or goiter palpable. Cardio: Regular rate and rhythm, s1 and s2 normal, no murmur appreciated. Resp: Clear to auscultation bilaterally, no rhonchi, rales, wheezing or rubs Course Course Emergency Course: Portions of this record may have been created with voice recognition software. Level of Care: Express Care Visit Vital Signs Vital signs: Vital Signs Temperature 36.3 C L 07/07/23 15:34 Pulse Rate 59 L 07/07/23 15:34 Respiratory Rate 18 07/07/23 15:34 Blood Pressure 128/72 07/07/23 15:34 Pulse Oximetry 100 07/07/23 15:34 Oxygen Delivery Room Air 07/07/23 15:34 Temperature 36.3 C L 07/07/23 15:34 Pulse Rate 59 L 07/07/23 15:34 Respiratory Rate 18 07/07/23 15:34 Blood Pressure 128/72 07/07/23 15:34 Pulse Oximetry 100 07/07/23 15:34 Oxygen Delivery Room Air 07/07/23 15:34 Vital signs reviewed Medical Decision Making MDM Narrative Medical decision making narrative: At the time of visit patient is resting comfortably on the exam table. Patient appears to be nontoxic. Supportive measures were discussed with the patient and they voiced understanding discharge instructions and agrees to treatment plan. Return precautions reviewed Differential Diagnosis Differential Diagnosis: Otitis media, otitis externa, eustachian tube dysfunction, upper respiratory infection, serous otitis, cerumen impaction Vital Signs Vital Signs: Vital Signs Temperature 36.3 C L 06/10
== END 2023-07-07 16:04 | disposition home or self-care (01) ==
PROVIDERS: Emergency Provider Nurse Practitioner Family; PCP Nurse Practitioner Family
DX: H65.02 Acute serous otitis media, left ear (principal); J45.909 Unspecified asthma, uncomplicated; K21.9 Gastro-esophageal reflux disease without esophagitis; E11.9 Type 2 diabetes mellitus without complications; Z79.4 Long term (current) use of insulin; Z86.16 Personal history of COVID-19
CPT/HCPCS: 99213; G0463